=== PATIENT | female | born 1955 | race Hispanic/Latino ===

== ENCOUNTER 2018-06-18 17:01 | Observation (INO) | payer BC ==
[~2018-06-18] VITALS: Ht 170.2 cm; Wt 89.8 kg
[~2018-06-18 17:01] MED LIST: CARAFATE1 GM/10 ML PO; CYMBALTA30 MG PO; FIORICET1 EA PO; GABAPENTIN300 MG PO; GLIPIZIDE ER5 MG PO; LIPITOR10 MG PO; METFORMIN HCL500 M2 PO; PANTOPRAZOLE SO40 MG PO; TRAMADOL HCL100 M1; TRAZODONE HCL300 MG PO; WELLBUTRIN100 MG PO
--- NOTE | 2018-06-18 18:42 | Diagnostic Imaging Report ---
Examination: CT head without contrast Clinical Indication: Confusion. Technique: Transaxial noncontrast images from the skull base through the vertex were obtained. Sagittal and coronal reformatted images were done. Dose modulation, iterative reconstruction, and/or weight based adjustment of the mA/kV was utilized to reduce the radiation dose to as low as reasonably achievable. Comparison: None. Findings: Scalp: No abnormalities. Bones: Intact. No fractures. No blastic or lytic lesions. Brain sulci: Appropriate for patient's age. Ventricles: Normal in size and configuration. No hydrocephalus. Extra-axial space: No abnormalities. Parenchyma: No masses, hemorrhage, or acute or chronic cortical based vascular insults. Suprasellar region: No abnormalities. Craniocervical junction: The foramen magnum is patent. No Chiari one malformation. Incidental findings: Atherosclerotic calcification of the cavernous and supraclinoid internal carotid arteries. Impression: No intracranial abnormality. Signed by: Dr. Cat Rueda M.D. on 06/18/2018 6:39 PM
--- NOTE | 2018-06-18 19:06 | Diagnostic Imaging Report ---
Frontal and lateral views of the chest. HISTORY: Confused, feels weird COMPARISON: None available. DISCUSSION: Lungs: Low lung volumes on the lateral view. No evidence of a consolidative pneumonia or pulmonary alveolar edema. Pleura: No pleural effusion or pneumothorax. Heart and mediastinum: The cardiomediastinal silhouette appears unremarkable. Bones: No acute osseous lesion. IMPRESSION: No acute radiographic abnormality. Signed by: Dr. Myles Pham D.O., M.M.M. on 06/18/2018 7:02 PM
[2018-06-18 19:25] LABS: BASOPHILS # (AUTO) 0.1 (0.0-0.1); BASOPHILS % 0.8 % (0.0-1.0); EOSINOPHILS # (AUTO) 1.2 (0.0-0.4); EOSINOPHILS % 11.7 % (0.0-6.0); HEMATOCRIT 44.3 % (34.2-44.1); HEMOGLOBIN 14.6 g/dL (12.0-16.0); LYMPHOCYTES # (AUTO) 2.6 (1.0-3.2); LYMPHOCYTES % 26.2 % (18.0-39.1); MEAN CORPUSCULAR HEMOGLOBIN 31.3 pg (28-32); MEAN CORPUSCULAR VOLUME 95.1 fL (81-99); MONOCYTES # (AUTO) 0.6 (0.2-0.8); MONOCYTES % 6.3 % (4.4-11.3); NEUTROPHILS # (AUTO) 5.4 (2.1-6.9); NEUTROPHILS % 54.7 % (38.7-80.0); RED BLOOD COUNT 4.66 x10e6/uL (3.6-5.1); RED CELL DISTRIBUTION WIDTH 12.9 % (11.7-14.4)
[2018-06-18 19:33] LABS: INR 0.89; PROTHROMBIN TIME 12.9 seconds (11.9-14.5)
[2018-06-18 19:34] LABS: PARTIAL THROMBOPLASTIN TIME 18.5 seconds (23.8-35.5)
[2018-06-18 19:47] LABS: ALANINE AMINOTRANSFERASE 26 IU/L (0-55); ALBUMIN/GLOBULIN RATIO 1.2 (0.8-2.0); ALKALINE PHOSPHATASE 102 IU/L (40-150); ANION GAP 16.9 mmol/L (8-16); BLOOD UREA NITROGEN 19 mg/dL (7-26); BUN/CREATININE RATIO 19 (6-25); CALCIUM 10.4 mg/dL (8.4-10.2); CARBON DIOXIDE 22 mmol/L (22-29); CHLORIDE 106 mmol/L (98-107); CREATINE KINASE 199 IU/L (29-168); CREATININE, SERUM 0.98 mg/dL (0.57-1.11); EST GLOMERULAR FILTRATION RATE 58 ML/MIN (60-); GLUCOSE 161 mg/dL (74-118); POTASSIUM 4.9 mmol/L (3.5-5.1); SODIUM 140 mmol/L (136-145)
[2018-06-18] MEDS ORDERED: HYDRALAZINE HCL 20 MG/ML VIAL IV STA (20:23)
[2018-06-18 20:29] LABS: PLATELET CLUMPS FEW; PLATELET COUNT 143 x10e3/uL (140-360); PLATELET ESTIMATE ADEQUATE; PLATELET MORPHOLOGY COMMENT NORMAL; RBC MORPHOLOGY COMMENT NORMAL
[2018-06-18 20:44] LABS: AMPHETAMINES SCREEN,URINE NEGATIVE (NEGATIVE); BENZODIAZEPINES SCREEN,URINE POSITIVE (NEGATIVE); CLARITY,URINE SL CLOUDY (CLEAR); COLOR,URINE YELLOW (YELLOW); KETONES,URINE 1+ (NEGATIVE); LEUKOCYTE ESTERASE ,URINE NEGATIVE (NEGATIVE); NITRITE,URINE POSITIVE (NEGATIVE); PHENCYCLIDINE SCREEN,URINE NEGATIVE (NEGATIVE); PROTEIN,URINE DIPSTICK NEGATIVE (NEGATIVE)
[2018-06-18 20:45] LABS: BILIRUBIN,URINE NEGATIVE (NEGATIVE); URINE UROBILINOGEN 0.2 mg/dL (0.2 - 1)
[2018-06-18 21:05] LABS: BACTERIA,URINE MANY /HPF; WBC,URINE (MAN) 0-5 /HPF (0-5)
[2018-06-18] MEDS ORDERED: DEXTROSE 50% SYRINGE 50 ML IV PRN (21:45)
[2018-06-18] MEDS ORDERED: ONDANSETRON HCL INJ 2 MG/ML VIAL IV PRN (21:45)
[2018-06-18] MEDS ORDERED: LISINOPRIL10 MG PO (22:01)
[2018-06-18] MEDS ORDERED: GLIMEPIRIDE2 MG PO (22:01)
[2018-06-18] MEDS ORDERED: METOCLOPRAMIDE10 MG PO (22:01)
[2018-06-18] MEDS ORDERED: DICYCLOMINE HCL20 MG PO (22:05)
[2018-06-18] MEDS ORDERED: ALPRAZOLAM0.5 MG PO (22:05)
[2018-06-18] MEDS ORDERED: DIPHENHYDRAMINE25 M2 (22:05)
[2018-06-18] MEDS ORDERED: TRAZODONE HCL100 MG PO (22:05)
[2018-06-18] MEDS ORDERED: PIOGLITAZONE HC45 MG PO (22:05)
[2018-06-18] MEDS ORDERED: OMEPRAZOLE40 MG PO (22:06)
[2018-06-18] MEDS ORDERED: BISACODYL5 MG PO (22:07)
[2018-06-18] MEDS ORDERED: BISACODYL 5 MG TAB EC PO SCH (22:15)
[2018-06-18] MEDS ORDERED: BISACODYL 5 MG TAB EC PO PRN (22:30)
[2018-06-18 22:50] VITALS: BP 167/100
[2018-06-18] MEDS: SODIUM CHLORIDE 0.9% 1000ML 1,000 ML IV SCH (23:48)
[2018-06-19] VITALS (7 sets, daily range): BP systolic 132–185; BP diastolic 71–107
[2018-06-19 05:52] LABS: BASOPHILS # (AUTO) 0.1 (0.0-0.1); BASOPHILS % 0.4 % (0.0-1.0); EOSINOPHILS # (AUTO) 0.1 (0.0-0.4); EOSINOPHILS % 0.6 % (0.0-6.0); HEMATOCRIT 42.4 % (34.2-44.1); HEMOGLOBIN 14.6 g/dL (12.0-16.0); LYMPHOCYTES # (AUTO) 1.8 (1.0-3.2); MEAN CORPUSCULAR HEMOGLOBIN 31.3 pg (28-32); MEAN CORPUSCULAR HGB CONC 34.4 g/dL (31-35); MONOCYTES # (AUTO) 0.6 (0.2-0.8); MONOCYTES % 5.2 % (4.4-11.3); NEUTROPHILS # (AUTO) 8.7 (2.1-6.9); NEUTROPHILS % 77.4 % (38.7-80.0); PLATELET COUNT 266 x10e3/uL (140-360); RED BLOOD COUNT 4.66 x10e6/uL (3.6-5.1); RED CELL DISTRIBUTION WIDTH 12.8 % (11.7-14.4)
[2018-06-19 06:15] LABS: ALANINE AMINOTRANSFERASE 24 IU/L (0-55); ALBUMIN 3.7 g/dL (3.5-5.0); ALBUMIN/GLOBULIN RATIO 1.2 (0.8-2.0); ALKALINE PHOSPHATASE 95 IU/L (40-150); BLOOD UREA NITROGEN 14 mg/dL (7-26); BUN/CREATININE RATIO 17 (6-25); CALCIUM 10.4 mg/dL (8.4-10.2); CARBON DIOXIDE 20 mmol/L (22-29); CHLORIDE 104 mmol/L (98-107); CREATININE, SERUM 0.81 mg/dL (0.57-1.11); EST GLOMERULAR FILTRATION RATE > 60 ML/MIN (60-); GLUCOSE 184 mg/dL (74-118); SODIUM 138 mmol/L (136-145)
[2018-06-19] MEDS: INSULIN REGULAR, HUMAN 100 UNIT/1 ML 3ML VIAL SQ SCH ×3 (07:45→15:56)
[2018-06-19] MEDS: DICYCLOMINE HCL 20 MG TAB PO SCH ×3 (08:35→16:42)
[2018-06-19] MEDS: SODIUM CHLORIDE 0.9% 1000ML 1,000 ML IV SCH ×2 (08:35→13:37)
[2018-06-19] MEDS: METOCLOPRAMIDE HCL 10 MG TAB PO SCH ×3 (08:35→16:42)
[2018-06-19] MEDS ORDERED: LISINOPRIL 10 MG TAB PO SCH (09:00)
[2018-06-19] MEDS ORDERED: PANTOPRAZOLE SOD 40 MG TABEC PO SCH (09:00)
[2018-06-19] MEDS ORDERED: GABAPENTIN 300 MG CAP PO SCH (09:00)
[2018-06-19] MEDS ORDERED: DULOXETINE HCL 30 MG DELAYED RELEASE PO SCH (09:00)
[2018-06-19] MEDS ORDERED: BUPROPION HCL 100 MG TAB PO SCH (09:00)
--- NOTE | 2018-06-19 11:04 | Diagnostic Imaging Report ---
EXAMINATION: MRI of the brain without contrast. HISTORY: Altered mental status, confusion, chronic substance abuse, hypertension COMPARISON: Head CT on 06/18/2018 TECHNIQUE: Sagittal T2; axial DWI, T2, FLAIR, T1-IR, T2 gradient echo; coronal FLAIR. IMAGE QUALITY: Adequate. FINDINGS: Parenchyma: 1. Few scattered white matter T2 hyperintense foci, most likely nonspecific chronic microvascular ischemic changes. 2. No mass, hemorrhage, acute or chronic infarcts. Skull: Unremarkable. Vessels: Expected flow voids present in the major arteries and dural sinuses. Extra-axial spaces: No abnormal signal intensity or mass effect. Brain volume: Mild generalized brain volume loss Ventricles: No hydrocephalus or displacement. Foramen magnum: Unremarkable. Sella: Unremarkable. Paranasal / mastoid sinuses: No significant inflammatory disease. IMPRESSION: 1. No acute infarcts or hemorrhage. 2. Minimal chronic microvascular ischemic changes. 3. Mild generalized brain volume loss. Signed by: Dr. Shraddha Lubin M.D. on 06/19/2018 11:01 AM
[2018-06-19] MEDS ORDERED: GABAPENTIN300 MG PO (17:07)
--- NOTE | 2018-06-19 18:04 | History and Physical ---
HISTORY OF PRESENT ILLNESS: A charming but unfortunate 62-year-old woman with a history of depression, overwhelmed by taking care of her mother. She admits that she took extra gabapentin and trazodone prescribed by Dr. Rizvi. She has a history of hypertension, diabetes and depression. She was born in [place]. She takes care of her mother. She has dementia. She has had recent fracture of her left foot and is in a walking boot. ROS ACTIVE HX DEPRESSION HTN DM NO RENL HEART OR RESPIRAORY LINITATIONS PAST MEDICAL HISTORY: She has had hysterectomy. Three children. She has history of migraine headaches and depression. Denies suicidal ideation. FAMILY HISTORY: Positive for dementia. SOCIAL HISTORY: She smokes and is trying to quit. She smokes less than a pack. MEDICATIONS: Prilosec, Fioricet, alprazolam, lisinopril, bupropion, dicyclomine, Cymbalta, Bentyl, Amaryl, metformin, Actos, trazodone and Neurontin. She does not take _REGLAN___. She requests discharge and promises to follow up with Dr. Rizvi, her regular psychiatrist. PHYSICAL EXAMINATION GENERAL: She is a well-developed white female in no acute distress, looking her stated age. VITAL SIGNS: Temperature 98, pulse 100, blood pressure 136/61. HEAD: Normocephalic, atraumatic. NECK: Trachea midline. LUNGS: Clear. HEART: Regular rhythm. ABDOMEN: Nontender. EXTREMITIES: No edema. IMPRESSION: Accidental overdose of Neurontin and trazodone. PLAN: Lower the dose of gabapentin to 300 mg and trazodone to 50. Continue medications with careful observation, Xanax. Follow up with primary care physician. Hemoglobin is 15. Glucose is elevated, on admission 224. Calcium is also elevated . Will defer to primary care physician, Dr. Rizvi. TSH __NL___. MRI of the brain suggests minimal chronic microvascular changes, no strokes. Chest x-ray is clear. She is advised to discontinue her cigarette smoking habits. Job[facility] [id number] [facility]
== END 2018-06-19 17:49 | disposition home or self-care (01) ==
LOC: ER 17:01 → ERHOLD 21:53 → MED/SURG 22:50
PROVIDERS: ADMIT Internal Medicine; ATTEND Internal Medicine
DX: T42.6X1A Poisoning by other antiepileptic and sedative-hypnotic drugs, accidental (unintentional), initial encounter (principal); T43.211A Poisoning by selective serotonin and norepinephrine reuptake inhibitors, accidental (unintentional), initial encounter; I10 Essential (primary) hypertension; E11.9 Type 2 diabetes mellitus without complications; Z83.3 Family history of diabetes mellitus; Z82.49 Family history of ischemic heart disease and other diseases of the circulatory system; F12.10 Cannabis abuse, uncomplicated
CPT/HCPCS: 36415 ×2; 70450; 70551; 71046; 80053 ×2; 80307; 80320; 81001; 82550; 82553; 82948 ×2; 84443; 84484; 85025 ×2; 85610; 85730; 93005; 96374; 99284; G0378 ×2; J0360; J2405; J7030 ×2; S0164